=== PATIENT | female | born 1955 | race Caucasian/White ===

== ENCOUNTER 2020-08-26 22:04 | Inpatient (IN) | payer OTHER ==
[~2020-08-26] VITALS: Ht 165.1 cm; Wt 136.1 kg
--- NOTE | 2020-08-26 22:25 | Emergency Room Report ---
History of Present Illness General Chief Complaint: To Be Triaged Source: Patient, Medical Record, EMS Present Illness HPI Is a 65-year-old female with a history of diabetes and morbid obesity with a BMI of 50. She presents with chief complaint of left leg pain and drainage. Onset for last 2 days. She has redness and drainage from her left lower extremity. Pain is 9 out of 10. No fever chills. No nausea no vomiting. Denies any trauma. Similar symptom in the past. She has a history of lymphedema. Patient had multiple Covid test during the pandemic has been negative. She has 2 doses of vaccine already. Allergies: Coded Allergies: No Known Allergies (Unverified , 08/26/20) COVID-19 Screening Contact w/high risk pt: No Experienced COVID-19 symptoms?: No COVID-19 Testing performed CIVIL ENGINEERING DIRECTOR: Yes COVID-19 Screening: Negative COVID-19 COVID-19 Testing Source: unknown Patient History Past Medical History: see triage record, old chart reviewed, DM Past Surgical History: other Pertinent Family History: none Social History: Denies: smoking Now: No Immunizations: other Reviewed Nursing Documentation: PMH: Agreed; PSxH: Agreed Review of Systems Eye: Denies: eye pain, blurred vision ENT: Denies: ear pain, nose congestion, throat swelling Respiratory: Denies: cough, shortness of breath Cardiovascular: Denies: chest pain, palpitations Gastrointestinal: Denies: abdominal pain, diarrhea, nausea, vomiting Musculoskeletal: Reports: muscle pain; Denies: back pain, joint pain Skin: Denies: rash Neurological: Denies: headache, numbness Endocrine: Denies: increased thirst, increased urine Hematologic/Lymphatic: Denies: easy bruising All Other Systems: negative except mentioned in HPI Physical Exam Vital Signs Date Time Temp Pulse Resp B/P (MAP) Pulse Ox O2 Delivery O2 Flow Rate FiO2 08/26/20 21:50 63 22 98/54 (69) 95 Room Air Vitals unremarkable Sp02 EP Interpretation: reviewed, normal General Appearance: well appearing, no apparent distress, alert, obese Head: normocephalic, atraumatic Eyes: bilateral eye PERRL, bilateral eye EOMI ENT: hearing grossly normal, normal pharynx Neck: full range of motion, supple, no meningismus Respiratory: chest non-tender, lungs clear, normal breath sounds Cardiovascular #1: regular rate, rhythm, no murmur Gastrointestinal: normal bowel sounds, non tender, no mass, no organomegaly, no bruit, non-distended Musculoskeletal: back normal, normal range of motion, other - Bilateral lower extremity with lymphedema. Left lower extremity laterally with ulceration and slight drainage. No crepitance. Psychiatric: mood/affect normal Medical Decision Making Diagnostic Impression: Primary Impression: Cellulitis of left leg without foot Additional Impressions: Anemia Qualified Codes: D64.9 - Anemia, unspecified Hyperglycemia due to type 2 diabetes mellitus Qualified Codes: E11.65 - Type 2 diabetes mellitus with hyperglycemia; Z79.4 - long-term (current) use of insulin Morbid obesity with BMI of 45.0-49.9, adult ER Course This is a 65-year-old female with morbid obesity and diabetes who presents with chief complaint of wound drainage to the left leg. Increased risk for bacterial infection and complication because of her obesity and none ambulatory status. Antibiotics given. Wound culture obtained. Will admit for IV antibiotics. I contacted Dr. Sanz for admission. Last Vital Signs Date Time Temp Pulse Resp B/P (MAP) Pulse Ox O2 Delivery O2 Flow Rate FiO2 08/26/20 21:50 63 22 98/54 (69) 95 Room Air Status: improved Disposition: ADMITTED INPATIENT Condition: Serious Ricardo Koch MD Aug 26, 2020 22:24
[2020-08-26] MEDS ORDERED: cefTRIAXone 1 GM in NS 55 ML IVPB ONE (22:30)
[2020-08-26] MEDS ORDERED: HYDROmorphone 1mg/ml Carpuject IVP ONE (22:30)
--- NOTE | 2020-08-26 22:30 | NUR ---
ED Nurse Note: patient brought via ems from [facility] due to swelling, redness, and ulcer formation on left lower leg, blood cultures, wound cultures, and blood specimens sent to lab
[2020-08-26] MEDS ORDERED: ACETAMINOPHEN500 M5 ORAL (22:41)
[2020-08-26] MEDS ORDERED: ELIQUIS5 MG ORAL (22:43)
[2020-08-26] MEDS ORDERED: ASCORBIC ACID500 MG ORAL (22:44)
[2020-08-26] MEDS ORDERED: ATORVASTATIN CA40 MG ORAL (22:44)
[2020-08-26] MEDS ORDERED: LANTUS SOL100 UNIT/1 SUBQ (22:46)
[2020-08-26] MEDS ORDERED: FUROSEMIDE40 MG ORAL (22:47)
[2020-08-26] MEDS ORDERED: CALCIUM CARBON500 M1 PO (22:47)
[2020-08-26 22:48] LABS: BASOPHILS % (AUTO) 0.9 % (0.0-2.0); EOSINOPHILS % (AUTO) 4.7 % (0.0-3.0); HEMATOCRIT 31.3 % (37.0-47.0); HEMOGLOBIN 9.4 G/DL (12.0-16.0); LYMPHOCYTES % (AUTO) 22.2 % (20.0-45.0); MEAN CORPUSCULAR VOLUME 89 FL (80-99); MONOCYTES % (AUTO) 9.9 % (1.0-10.0); NEUTROPHILS % (AUTO) 62.3 % (45.0-75.0); PLATELET COUNT 201 K/UL (150-450); RED CELL DISTRIBUTION WIDTH 17.1 % (11.6-14.8); WHITE BLOOD COUNT 6.6 K/UL (4.8-10.8)
[2020-08-26] MEDS ORDERED: GABAPENTIN800 MG ORAL (22:48)
[2020-08-26] MEDS ORDERED: HYDRALAZINE HCL10 MG ORAL (22:49)
[2020-08-26] MEDS ORDERED: LEXAPRO20 MG ORAL (22:50)
[2020-08-26] MEDS ORDERED: LACTULOSE20 GM/301 ORAL (22:50)
[2020-08-26 22:51] LABS: CALCIUM 9.1 MG/DL (8.5-10.1); CREATININE 1.5 MG/DL (0.55-1.30); POTASSIUM 4.7 MMOL/L (3.5-5.1)
[2020-08-26] MEDS ORDERED: MELATONIN3 MG ORAL (22:51)
[2020-08-26] MEDS ORDERED: LISINOPRIL40 MG ORAL (22:51)
[2020-08-26] MEDS ORDERED: MELOXICAM15 MG PO (22:52)
[2020-08-26] MEDS ORDERED: METOPROLOL TART50 M1 ORAL (22:53)
[2020-08-26] MEDS ORDERED: METFORMIN HCL500 M1 ORAL (22:53)
[2020-08-26] MEDS ORDERED: MULTIVITAMINS1 EAC8 ORAL (22:54)
[2020-08-26 22:55] LABS: ALBUMIN 2.6 G/DL (3.4-5.0); ALBUMIN/GLOBULIN RATIO 0.5 (1.0-2.7); BILIRUBIN,TOTAL 0.3 MG/DL (0.2-1.0)
[2020-08-26] MEDS ORDERED: ADALAT20 MG ORAL (22:55)
[2020-08-26] MEDS ORDERED: HYDROCODON-ACE1 EA17 ORAL (22:56)
[2020-08-26] MEDS ORDERED: SEROQUEL50 MG ORAL (22:57)
[2020-08-26] MEDS ORDERED: INSULIN LI100 UNIT/4 SQ (23:01)
[2020-08-26 23:49] VITALS: BP 98/54
[2020-08-27] VITALS (7 sets, daily range): BP systolic 98–139; BP diastolic 48–81
[2020-08-27] MEDS ORDERED: Morphine Sulfate 4mg/ml Inj (IV USE ONLY) IVP PRN
--- NOTE | 2020-08-27 00:06 | NUR ---
NURSE NOTES: Received telephone report from Manuela GALDAMEZ.
--- NOTE | 2020-08-27 00:16 | NUR ---
MRSA, CRE, VRE swabs sent to lab
--- NOTE | 2020-08-27 00:17 | NUR ---
HAND-OFF: Report given to Ulysses.
--- NOTE | 2020-08-27 00:26 | NUR ---
TRANSFER TO FLOOR: Patient transferred to as ordered, per MD. Report given to MARY. PATIENT HAD NO PERSONAL BELONGINGS
--- NOTE | 2020-08-27 00:30 | NUR ---
NURSE NOTES: Patient transported by [facility]. She is awake, alert and oriented x4. On NC 2L, breathing is even and unlabored. Saturating 99%. VS stable. Skin checked and intact. Red spots on left lower leg noted. Connected to purewick, intact and draining well. Complains of leg pain 03/31. Oriented to hospital room. Bed low and locked. Call light within reach.
--- NOTE | 2020-08-27 01:21 | NUR ---
NURSE NOTES: Called for admission orders. No answer. Left a text message. No new orders at the moment.
[2020-08-27] MEDS ORDERED: HydrALAZINE 10mg Tab ORAL SCH (06:45)
--- NOTE | 2020-08-27 07:29 | NUR ---
NURSE HAND-OFF: Important Events on Shift: Admission Patient Status: Stable Diet: CCHO (medium) Pending Orders: [] Pending Results/Labs:[] Pending MD notification:[] Latest Vital Signs: Temperature 98.1 , Pulse 58 , B/P 117 /73 , Respiratory Rate 20 , O2 SAT 93 , Room Air, O2 Flow Rate 2.0 . Vital Sign Comment: VS stable Latest Roy Fall Score: 45 Fall Risk: High Risk Safety Measures: Call light Within Reach, Bed Alarm , Side Rails Side Rails x2, Bed position Low and Locked. Fall Precautions: Patient Fall Education Report given to Jam GALDAMEZ.
--- NOTE | 2020-08-27 07:30 | NUR ---
NURSE NOTES: Patient lying in bed awake. No complain of pain or distress at this time. Wound dressing on left lower leg dry and intact. IV dressing intact and dry. Bed lowest position and side rails up. Call light within reach. Will continue to monitor.
[2020-08-27] MEDS ORDERED: HYDROcodone/Acetamin 10/325 tab ORAL PRN (08:00)
[2020-08-27] MEDS ORDERED: Heparin 5000 units/ml inj SUBQ SCH (09:00)
[2020-08-27] MEDS ORDERED: Lisinopril 20mg tab ORAL SCH (09:00)
[2020-08-27] MEDS: Meloxicam 15 MG TAB ORAL SCH (09:37)
[2020-08-27] MEDS: Ascorbic Acid 500mg tab ORAL SCH (09:37)
[2020-08-27] MEDS: metFORMIN 500mg tab ORAL SCH (09:38)
[2020-08-27] MEDS: Metoprolol Tartrate 50mg tab ORAL SCH ×2 (09:38→21:04)
[2020-08-27] MEDS: Eliquis 2.5mg tablet ORAL SCH ×2 (09:38→17:29)
[2020-08-27] MEDS: Furosemide 40mg tab ORAL SCH (09:38)
[2020-08-27] MEDS: Multivitamin w/Minerals tab ORAL SCH (09:38)
[2020-08-27] MEDS: Lactulose 20gm/30ml UDC ORAL SCH ×3 (09:39→17:33)
[2020-08-27] MEDS: Levemir Flexpen SUBQ SCH ×2 (09:40→17:31)
--- NOTE | 2020-08-27 12:33 | NUR ---
NURSE NOTES: Spoke to regarding [place] and Hydralazine and new order received. Order read back and carried out.
[2020-08-27] MEDS ORDERED: HydrALAZINE 10mg Tab ORAL PRN (12:36)
[2020-08-27] MEDS: HYDROcodone/Acetamin 10/325 tab ORAL PRN ×2 (12:43→18:46)
[2020-08-27] MEDS: NovoLOG Insulin Flexpen SUBQ SCH ×3 (12:45→21:24)
--- NOTE | 2020-08-27 17:09 | NUR ---
CASE MANAGEMENT: INITIAL REVIEW 65 YO F LIGIA FROM [facility] CC: LEFT LEG REDNESS PMHx: DM AND MORBID OBESITY SI:CELLULITIS LEFT LOWER EXTREMITY VS: T 98.7 HR 58 RR 16 B/P 98/54 SATS 95% ON 2L/NC LABS: BUN 60 CR 1.5 GLU 332 ALP 119 IS: DILAUDID IV X1 CEFTRIAXONE IV X1 NS BOLUS X1 PATIENT ADMITTED TO MED/SURG 08/26/2020 @ 2310 DCP: SNF CONCURRENT REVIEW FOR 08/27/2020 SI:CELLULITIS LEFT LOWER EXTREMITY VS: T 98.1 HR 58 RR 20 B/P 117/73 SATS 93% ON 2L/NC LABS: NONE TODAY IS:LIPITOR PO QHS ELIQUIS PO BID LEVEMIR SUBQ BID LOPRESSOR PO BID LASIX PO QD MOBIC PO QD GLUCOPHAGE PO QD CEFTRIAXONE IV Q24H LACTULOSE IV Q24H MED/SURG DCP: SNF
--- NOTE | 2020-08-27 19:36 | NUR ---
NURSE HAND-OFF: Important Events on Shift:N/A Patient Status: Stable Diet: CCHO(M) Pending Orders: N/A Pending Results/Labs:N/A Pending MD notification:N/A Latest Vital Signs: Temperature 98.3 , Pulse 63 , B/P 134 /49 , Respiratory Rate 19 , O2 SAT 92 , Room Air, O2 Flow Rate 2.0 . Vital Sign Comment: Stable Latest Roy Fall Score: 35 Fall Risk: Medium Risk Safety Measures: Call light Within Reach, Bed Alarm Zone 1, Side Rails Side Rails x1, Bed position Low and Locked. Fall Precautions: Yellow Socks Door Sign Patient Fall Education Report given to Diaz GALDAMEZ. Patient in stable condition.
--- NOTE | 2020-08-27 19:40 | NUR ---
NURSE NOTES: Pt received from RUDOLPH Polk. Pt is resting comfortably in bed c/o pain in LLE extremity with cellulitis relieved by pain medication. Pt is A/Ox4 bedbound due to weakness. Pt is breathing unlabored on 2LPM NC and asymptomatic. Pt has ANTOINETTE 24G SL patent with dressing dry and intact. Bed is locked and in lowest position with call light within reach. Will continue to monitor.
--- NOTE | 2020-08-27 21:00 | NUR ---
NURSE NOTES: Pt c/o severe pain in left lower extremity unrelieved by current pain medication. Dr Sanz ordered new pain medication and added Dr Harry for pain consult. Administered new medication. Pt reports relief of pain. Will continue to monitor.
[2020-08-27] MEDS: Atorvastatin 20mg tab ORAL SCH (21:04)
--- NOTE | 2020-08-27 21:29 | History and Physical Report ---
DATE OF ADMISSION: 08/26/2020 HISTORY OF PRESENT ILLNESS: This is a 65-year-old white female who came to the emergency room for cellulitis of the left leg, swelling, and chronic pain. The patient is in bed complaining of pain. PAST MEDICAL HISTORY: Significant for hypertension, diabetes, CHF, comorbid obesity. ALLERGIES: NKA. FAMILY HISTORY: Noncontributory. SOCIAL HISTORY: Lives at alf, mostly bedbound. REVIEW OF SYSTEMS: Generalized weakness, pain on the leg and swelling. PHYSICAL EXAMINATION: VITAL SIGNS: Blood pressure is 124/70, pulse 84, respirations 18, no fever. HEENT: Mild JVD. CHEST: Bilateral decreased breath sounds. CARDIOVASCULAR: Regular rhythm. No gallop. No murmur. ABDOMEN: Soft. Positive bowel sounds. EXTREMITIES: Show 1+ edema on both legs and the left leg has erythema and tenderness. GENITOURINARY: Deferred. LABORATORY DATA: Troponins are negative. ASSESSMENT AND PLAN: 1. Cellulitis of left leg. 2. Edema. 3. CHF. 4. Hypertension. 5. Diabetes. 6. Chronic pain. We will admit the patient on medical floor, start IV antibiotics, continue Lasix, continue pain medication, and consider Cardiology consult. Hal Sanz M.D. DR: Carisa JOB#: [id number] CC:
[2020-08-27] MEDS: Morphine Sulfate 2mg/ml Inj(IV/IM USE ONLY) IVP PRN (22:26)
[2020-08-27] MEDS: cefTRIAXone 1 GM in D5W 55 ML IVPB SCH (22:26)
[2020-08-28] VITALS (7 sets, daily range): BP systolic 93–122; BP diastolic 42–63
[2020-08-28] MEDS: HYDROcodone/Acetamin 10/325 tab ORAL PRN ×4 (01:17→20:55)
[2020-08-28] MEDS: Morphine Sulfate 2mg/ml Inj(IV/IM USE ONLY) IVP PRN ×2 (03:10→17:18)
[2020-08-28] MEDS: NovoLOG Insulin Flexpen SUBQ SCH ×4 (05:44→21:10)
--- NOTE | 2020-08-28 06:48 | NUR ---
NURSE HAND-OFF: Important Events on Shift:Pt received scheduled medications. Pt received new order for pain medication for severe pain and added consult Dr Harry to the case Patient Status: Stable Diet: CCHO Med Pending Orders: Pending Results/Labs:AM Labs Pending MD notification: Latest Vital Signs: Temperature 98.9 , Pulse 65 , B/P 105 /50 , Respiratory Rate 18 , O2 SAT 97 , Room Air, O2 Flow Rate 2.0 . Vital Sign Comment: VSS Latest Roy Fall Score: 35 Fall Risk: Medium Risk Safety Measures: Call light Within Reach, Bed Alarm Zone 1, Side Rails Side Rails x1, Bed position Low and Locked. Fall Precautions: Yellow Socks Door Sign Patient Fall Education Report to be given.
--- NOTE | 2020-08-28 08:00 | NUR ---
NURSE NOTES: Patient awake and alert and oriented ,respirations unlabored.Left upper arm saline lock in place.Patient has pure wick in place with clear donato color urine noted.Patient ate breakfast.Bed alarm on,call light within reach.
[2020-08-28] MEDS: Eliquis 2.5mg tablet ORAL SCH ×2 (08:54→18:17)
[2020-08-28] MEDS: Multivitamin w/Minerals tab ORAL SCH (08:54)
[2020-08-28] MEDS: Meloxicam 15 MG TAB ORAL SCH (08:54)
[2020-08-28] MEDS: Lactulose 20gm/30ml UDC ORAL SCH ×4 (08:55→18:00)
[2020-08-28] MEDS: metFORMIN 500mg tab ORAL SCH (08:55)
[2020-08-28] MEDS: Ascorbic Acid 500mg tab ORAL SCH (08:55)
[2020-08-28] MEDS: Lisinopril 20mg tab ORAL SCH (09:00)
[2020-08-28] MEDS: Metoprolol Tartrate 50mg tab ORAL SCH ×2 (09:00→20:54)
[2020-08-28] MEDS: Levemir Flexpen SUBQ SCH ×2 (09:01→18:22)
[2020-08-28] MEDS: Furosemide 40mg tab ORAL SCH (12:40)
--- NOTE | 2020-08-28 13:27 | Consultation ---
History of Present Illness General Reason for Hospitalization: General Complaint Present Illness HPI this is a 65-year-old female with a history of diabetes and morbid obesity with a BMI of 50 who presents with chief complaint of left leg pain and drainage. Onset for last 2 days. She has redness and drainage from her left lower extremity. Pain is 9 out of 10. No fever chills. No nausea no vomiting. Denies any trauma. Similar symptom in the past. She has a history of lymphedema. Patient had multiple Covid test during the pandemic has been negative. She has 2 doses of vaccine already. Surgery called to evaluate assist with care. Patient seen, patient by, chart reviewed. Patient states she has had significant venous stasis and her lower extremity some time now. Receives care as an outpatient. Facility. No nausea vomiting fever chills. Noted the wound on the posterior aspect of drainage surgery called. Allergies: Coded Allergies: No Known Allergies (Unverified , 08/26/20) COVID-19 Screening Contact w/high risk pt: No Experienced COVID-19 symptoms?: No Medication History Scheduled Acetaminophen (Acetaminophen), 325 MG ORAL Q6HR, (Reported) Apixaban (Eliquis*), 5 MG ORAL BID, (Reported) Ascorbic Acid* (Ascorbic Acid*), 500 MG ORAL DAILY, (Reported) Atorvastatin Calcium* (Atorvastatin Calcium*), 40 MG ORAL BEDTIME, (Reported) Escitalopram Oxalate* (Lexapro*), 20 MG ORAL DAILY, (Reported) Furosemide* (Lasix*), 40 MG ORAL DAILY, (Reported) Gabapentin* (Gabapentin*), 800 MG ORAL THREE TIMES A DAY, (Reported) Hydralazine Hcl* (Hydralazine Hcl*), 10 MG ORAL PRN, (Reported) Insulin Glargine (Lantus), 10 SUBQ TWICE A DAY, (Reported) Insulin Lispro (Insulin Lispro Lowell Kwikpen), 100 UNIT SQ sliding scale, (Reported) Lactulose (Lactulose*), 45 ML ORAL TID, (Reported) Lisinopril* (Lisinopril*), 40 MG ORAL TID, (Reported) Meloxicam* (Meloxicam*), 15 MG PO DAILY, (Reported) Metformin Hcl* (Metformin Hcl*), 500 MG ORAL DAILY, (Reported) Metoprolol Tartrate* (Metoprolol Tartrate*), 50 MG ORAL TWICE A DAY, (Reported) Multivitamin With Minerals (Multivitamins With Minerals*), 1 TAB ORAL DAILY, (Reported) Nifedipine (Nifedipine*), 30 MG ORAL DAILY, (Reported) Quetiapine Fumarate (Seroquel), 50 MG ORAL DAILY, (Reported) Scheduled PRN Calcium Carbonate (Calcium Carbonate), 500 MG PO Q8HR PRN for Prn Chest Pain, (Reported) Hydrocodone Bit/Acetaminophen (Hydrocodon-Acetaminophn 10-300), 1 TAB ORAL for For Pain, (Reported) Melatonin (Melatonin), 3 MG ORAL BEDTIME PRN for Insomnia, (Reported) Patient History History Provided By: Patient, Medical Record, PMD Healthcare decision maker Resuscitation status Advanced Directive on File Past Medical/Surgical History Past Medical/Surgical History: (1) Anemia (2) Morbid obesity with BMI of 45.0-49.9, adult (3) Hyperglycemia due to type 2 diabetes mellitus (4) Cellulitis of left leg without foot Review of Systems Review of Symptoms General ROS: no weight loss or fever Psychological ROS: no depression or mood changes, no memory loss Ophthalmic ROS: no visual changes or eye irritation ENT ROS: no nasal congestion, hearing loss, dizziness Allergy and Immunology ROS: no allergic symptoms or urticaria Hematological and Lymphatic ROS: no swollen glands, unusual bleeding or bruising Endocrine ROS: no polyuria, polydipsia, weight changes, temperature intolerance Respiratory ROS: no cough, shortness of breath, or wheezing Cardiovascular ROS: no chest pain or dyspnea on exertion Gastrointestinal ROS: denies abdominal pain, bright red blood in stool. Musculoskeletal ROS: no myalgias or arthralgias Neurological ROS: no TIA or stroke symptoms Dermatological ROS: no new or changing skin lesions, rashes or pruritis Physical Exam Physical Exam General appearance: alert, cooperative, no distress, appears stated age Head: Normocephalic, without obvious abnormality, atraumatic Eyes: conjunctivae/corneas clear. PERRL, EOM's intact. Fundi benign Throat: Lips, mucosa, and tongue normal. Teeth and gums normal Neck: supple, symmetrical, trachea midline, no adenopathy, thyroid: not enlarged, symmetric, no tenderness/mass/nodules, no carotid bruit and no JVD Lungs: clear to auscultation bilaterally Heart: regular rate and rhythm, S1, S2 normal, no murmur, click, rub or gallop Abdomen: soft, non-tender. Bowel sounds normal. No masses, no organomegaly Extremities: extremities edema Pulses: 2+ and symmetric Skin: Skin color, texture, turgor normal. No rashes or lesions Neurologic: Grossly normal Last 24 Hour Vital Signs Date Time Temp Pulse Resp B/P (MAP) Pulse Ox O2 Delivery O2 Flow Rate FiO2 08/28/20 09:17 60 93/42 (59) 08/28/20 09:00 Room Air 08/28/20 09:00 93/42 08/28/20 09:00 60 93/42 08/28/20 09:00 60 93/42 08/28/20 08:00 97.9 58 19 122/58 (79) 92 08/28/20 04:00 98.9 65 18 105/50 (68) 97 08/28/20 00:00 97.9 65 18 120/63 (82) 96 08/27/20 21:04 63 134/54 08/27/20 21:00 Room Air 08/27/20 20:00 97.9 69 18 98/48 (65) 98 08/27/20 16:00 98.3 63 19 134/49 (77) 92 Intake and Output 08/27/20 08/28/20 19:00 07:00 Intake Total 120 ml 55 ml Output Total 700 ml 500 ml Balance -580 ml -445 ml Intake Oral 120 ml IV Total 55 ml Output Urine Total 700 ml 500 ml # Voids 2 1 # Bowel Movements 1 Laboratory Tests Test 08/27/20 16:57 08/27/20 21:16 08/28/20 09:00 08/28/20 12:18 POC Whole Blood Glucose Pending Pending Pending Pending Height (Feet): 5 Height (Inches): 5.00 Weight (Pounds): 300 Medications Current Medications Medications (Trade) Dose Ordered Sig/Maya Route PRN Reason Start Time Stop Time Status Last Admin Dose Admin Acetaminophen (Tylenol) 325 mg Q6H PRN ORAL Mild Pain (Pain Scale 1-3) 08/27/20 08:00 09/26/20 07:59 Acetaminophen/ Hydrocodone Bitart (Paige 10/325) 1 tab Q6H PRN ORAL pain 4-10 08/27/20 12:36 09/03/20 12:35 08/28/20 12:52 Apixaban (Eliquis) 5 mg BID ORAL 08/27/20 09:00 11/25/20 08:59 08/28/20 08:54 Ascorbic Acid (Vitamin C) 500 mg DAILY ORAL 08/27/20 09:00 09/26/20 08:59 08/28/20 08:55 Atorvastatin Calcium (Lipitor) 40 mg BEDTIME ORAL 08/27/20 21:00 11/25/20 20:59 08/27/20 21:04 Ceftriaxone Sodium 1 gm/ Dextrose 55 ml @ 110 mls/hr Q24H IVPB 08/27/20 23:00 09/03/20 22:59 08/27/20 22:26 Dextrose (Dextrose 50%) 25 ml Q30M PRN IV Hypoglycemia 08/27/20 07:00 11/25/20 06:59 Dextrose (Dextrose 50%) 50 ml Q30M PRN IV Hypoglycemia 08/27/20 07:00 11/25/20 06:59 Escitalopram Oxalate (Lexapro) 20 mg DAILY ORAL 08/27/20 09:00 09/26/20 08:59 08/28/20 08:55 Furosemide (Lasix) 40 mg DAILY ORAL 08/27/20 09:00 09/26/20 08:59 08/28/20 12:40 Gabapentin (Neurontin) 800 mg THREE TIMES A DAY ORAL 08/27/20 09:00 09/26/20 08:59 08/28/20 08:52 Hydralazine HCl (Apresoline) 10 mg Q6H PRN ORAL SBP > 160; DBP > 90 08/27/20 12:36 11/25/20 12:35 Insulin Aspart (NovoLOG) BEFORE MEALS AND HS SUBQ 08/27/20 11:30 11/25/20 11:29 08/28/20 12:36 Insulin Detemir (Levemir) 10 units BID SUBQ 08/27/20 09:00 11/25/20 08:59 08/28/20 09:01 Lactulose (Cephulac) 30 gm TID ORAL 08/27/20 09:00 09/26/20 08:59 08/27/20 12:43 Lisinopril (PriniviL) 40 mg DAILY ORAL 08/28/20 09:00 09/26/20 08:59 Meloxicam (Mobic) 15 mg DAILY ORAL 08/27/20 09:00 09/26/20 08:59 08/28/20 08:54 Metformin HCl (Glucophage) 500 mg DAILY ORAL 08/27/20 09:00 09/26/20 08:59 08/28/20 08:55 Metoprolol Tartrate (Lopressor) 50 mg BID@0900,2100 ORAL 08/27/20 09:00 11/25/20 08:59 08/27/20 21:04 Morphine Sulfate (Morphine Sulfate) 1 mg Q4H PRN IVP pain 08/27/20 21:30 09/03/20 21:29 08/28/20 03:10 Multivitamins Therapeutic (Therapeutic Multivitamin) 1 ea DAILY ORAL 08/27/20 09:00 09/26/20 08:59 08/28/20 08:54 Nifedipine (Procardia XL) 30 mg DAILY ORAL 08/27/20 09:00 09/26/20 08:59 08/27/20 09:37 Assessment/Plan Problem List: (1) Anemia ICD Codes: D64.9 - Anemia, unspecified SNOMED: 972731085, 926484352, [id number] Qualifiers: Qualified Codes: D64.9 - Anemia, unspecified (2) Cellulitis of left leg without foot Assessment & Plan: Patient identified to have significant morbid obesity and bilateral lower extremity venous stasis disease with near elephantitis. She has developed cellulitis on the left leg and states she is had similar episodes in the past. No open wounds prior. Now has an area of eschar with mild oozing because of the cellulitis and edema on the left posterior aspect of the leg. Thera honey applied followed by ABD and wrap. Okay for Optifoam dressing. Keep bilateral lower extremities elevated while in bed. Nutritional optimization. Antibiotics. Will follow with recommendations. Thank you for let me participate in patient's care. No abscess identified no acute surgical intervention local wound care ICD Codes: L03.116 - Cellulitis of left lower limb SNOMED: 539056672, 90706444, [id number] (3) Morbid obesity with BMI of 45.0-49.9, adult ICD Codes: E66.01 - Morbid (severe) obesity due to excess calories; Z68.42 - Body mass index [BMI] 45.0-49.9, adult SNOMED: 526473131, 943674737, 03450305629520 (4) Hyperglycemia due to type 2 diabetes mellitus ICD Codes: E11.65 - Type 2 diabetes mellitus with hyperglycemia SNOMED: 650155025561026, 55513754, 25652036698808 Qualifiers: Qualified Codes: E11.65 - Type 2 diabetes mellitus with hyperglycemia; Z79.4 - intermediate card tender (current) use of insulin Corona Santiago Aug 28, 2020 13:27
--- NOTE | 2020-08-28 14:34 | General Progress Note ---
Subjective Date patient seen: Aug 28, 2020 Constitutional: Reports: malaise, weakness HEENT: Reports: no symptoms Cardiovascular: Reports: chest pain Respiratory: Reports: cough Gastrointestinal/Abdominal: Reports: no symptoms Genitourinary: Reports: no symptoms Neurologic/Psychiatric: Reports: no symptoms Allergies: Coded Allergies: No Known Allergies (Unverified , 08/26/20) Objective Last 24 Hour Vital Signs Date Time Temp Pulse Resp B/P (MAP) Pulse Ox O2 Delivery O2 Flow Rate FiO2 08/28/20 09:17 60 93/42 (59) 08/28/20 09:00 Room Air 08/28/20 09:00 93/42 08/28/20 09:00 60 93/42 08/28/20 09:00 60 93/42 08/28/20 08:00 97.9 58 19 122/58 (79) 92 08/28/20 04:00 98.9 65 18 105/50 (68) 97 08/28/20 00:00 97.9 65 18 120/63 (82) 96 08/27/20 21:04 63 134/54 08/27/20 21:00 Room Air 08/27/20 20:00 97.9 69 18 98/48 (65) 98 08/27/20 16:00 98.3 63 19 134/49 (77) 92 Intake and Output 08/27/20 08/28/20 19:00 07:00 Intake Total 120 ml 55 ml Output Total 700 ml 500 ml Balance -580 ml -445 ml Intake Oral 120 ml IV Total 55 ml Output Urine Total 700 ml 500 ml # Voids 2 1 # Bowel Movements 1 Laboratory Tests 08/27/20 16:57: POC Whole Blood Glucose [Pending] 08/27/20 21:16: POC Whole Blood Glucose [Pending] 08/28/20 09:00: POC Whole Blood Glucose [Pending] 08/28/20 12:18: POC Whole Blood Glucose [Pending] Height (Feet): 5 Height (Inches): 5.00 Weight (Pounds): 300 General Appearance: alert EENT: PERRL/EOMI Neck: supple Cardiovascular: regular rhythm Respiratory/Chest: crackles/rales Abdomen: non tender, soft Extremities: calf tenderness, swelling Assessment/Plan Assessment/Plan: cellulitis of leg chf htn ch pain synd comorbid obeasity cont iv abx lasix cardiac diet fluid restriction cont pain Jaren Cobb MD Aug 28, 2020 14:34
--- NOTE | 2020-08-28 17:20 | NUR ---
NURSE NOTES: Skin care given dressing changes,medicated for complaint of pain.Bed alarm on,call light within reach.
--- NOTE | 2020-08-28 19:40 | NUR ---
NURSE NOTES: Receive a report from RUDOLPH Alcaraz. Roud is made. Easily aroused by name. No acute distress noted. Left leg elevated with pillow. Dressing kept intact. On bed bound. IV is left DIONNE H/L. Call light within reach. Will continue to monitor.
--- NOTE | 2020-08-28 20:26 | NUR ---
NURSE HAND-OFF: O RN Important Events on Shift:[DR Santiago clarification on dressing change. Patient Status: [stable. Diet: CCHO medium diet[] Pending Orders: []lab on 08/29/20 Pending Results/Labs:[] Pending MD notification:[] Latest Vital Signs: Temperature 98.3 , Pulse 58 , B/P 110 /62 , Respiratory Rate 18 , O2 SAT 95 , Room Air, O2 Flow Rate 2.0 . Vital Sign Comment: [] Latest Roy Fall Score: 35 Fall Risk: Medium Risk Safety Measures: Call light Within Reach, Bed Alarm Zone 1, Side Rails Side Rails x1, Bed position Low and Locked. Fall Precautions: Yellow Socks Door Sign Patient Fall Education Report given to [].
[2020-08-28] MEDS: Atorvastatin 20mg tab ORAL SCH (20:54)
[2020-08-28] MEDS: cefTRIAXone 1 GM in D5W 55 ML IVPB SCH (22:31)
[2020-08-29] VITALS: BP 123/59
[2020-08-29] MEDS: HYDROcodone/Acetamin 10/325 tab ORAL PRN ×4 (03:21→22:34)
[2020-08-29 04:00] VITALS: BP 115/60
[2020-08-29] MEDS: NovoLOG Insulin Flexpen SUBQ SCH ×4 (06:12→21:22)
[2020-08-29] MEDS: Morphine Sulfate 2mg/ml Inj(IV/IM USE ONLY) IVP PRN ×2 (06:15→11:56)
--- NOTE | 2020-08-29 06:41 | NUR ---
NURSE HAND-OFF: Important Events on Shift: Given pain medication-Norcox2, Morphine x1. Kept elevated L/E for cellulitis. Patient Status: [stable] Diet: [CCHO M] Pending Orders: [] Pending Results/Labs:[] Pending MD notification:[] Latest Vital Signs: Temperature 98.1 , Pulse 57 , B/P 115 /60 , Respiratory Rate 18 , O2 SAT 97 , Room Air, O2 Flow Rate 2.0 . Vital Sign Comment: [] Latest Roy Fall Score: 45 Fall Risk: High Risk Safety Measures: Call light Within Reach, Bed Alarm Zone 1, Side Rails Side Rails x2, Bed position Low and Locked. Fall Precautions: Yellow Socks Door Sign Patient Fall Education
--- NOTE | 2020-08-29 07:26 | NUR ---
NURSE NOTES: Given report from RUDOLPH Casper.
[2020-08-29 08:00] VITALS: BP 110/55
[2020-08-29] MEDS: Lactulose 20gm/30ml UDC ORAL SCH ×3 (08:24→17:27)
[2020-08-29] MEDS: Ascorbic Acid 500mg tab ORAL SCH (08:25)
[2020-08-29] MEDS: Furosemide 40mg tab ORAL SCH (08:28)
[2020-08-29] MEDS: Metoprolol Tartrate 50mg tab ORAL SCH ×2 (08:28→21:00)
[2020-08-29] MEDS: Eliquis 2.5mg tablet ORAL SCH ×2 (08:29→17:27)
[2020-08-29] MEDS: Meloxicam 15 MG TAB ORAL SCH (08:29)
[2020-08-29] MEDS: Multivitamin w/Minerals tab ORAL SCH (08:30)
[2020-08-29] MEDS: metFORMIN 500mg tab ORAL SCH (08:30)
[2020-08-29] MEDS: Lisinopril 20mg tab ORAL SCH (08:31)
[2020-08-29] MEDS: Levemir Flexpen SUBQ SCH ×2 (08:46→17:34)
[2020-08-29 12:00] VITALS: BP 121/58
--- NOTE | 2020-08-29 14:41 | NUR ---
CASE MANAGEMENT:REVIEW 08/29/20 SI: LLE CELLULITIS. ANEMIA 97.7 59 18 121/58 92% ON RA GLUCOSE+179 IS: IV ROCEPHIN Q24 LISINOPRIL PO QD IV MORPHINE Q4HRS PRN SS INSULIN AC+HS LEVEMIR SQ BID PROCARDIA XL PO QD ELIQUIS PO BID LOPRESSOR PO BID LACTULOSE PO TID LASIX PO QD : MED/SURG STATUS DCP: FROM [facility]
[2020-08-29] MEDS ORDERED: NIFEDIPINE ER30 M2 ORAL (15:55)
[2020-08-29] MEDS ORDERED: HYDROCODON-ACE1 EA13 ORAL (15:55)
[2020-08-29] MEDS ORDERED: ACETAMINOPHEN325 M1 ORAL (15:55)
[2020-08-29 16:00] VITALS: BP 122/64
[2020-08-29 16:05] LABS: BASOPHILS % (AUTO) 1.1 % (0.0-2.0); EOSINOPHILS % (AUTO) 4.4 % (0.0-3.0); HEMATOCRIT 31.5 % (37.0-47.0); HEMOGLOBIN 9.5 G/DL (12.0-16.0); LYMPHOCYTES % (AUTO) 16.4 % (20.0-45.0); MEAN CORPUSCULAR VOLUME 90 FL (80-99); NEUTROPHILS % (AUTO) 70.1 % (45.0-75.0); PLATELET COUNT 196 K/UL (150-450); RED BLOOD COUNT 3.49 M/UL (4.20-5.40); RED CELL DISTRIBUTION WIDTH 16.8 % (11.6-14.8); WHITE BLOOD COUNT 7.3 K/UL (4.8-10.8)
--- NOTE | 2020-08-29 16:10 | General Progress Note ---
Subjective Date patient seen: Aug 29, 2020 Constitutional: Reports: weakness HEENT: Reports: no symptoms Cardiovascular: Reports: no symptoms Respiratory: Reports: shortness of breath Gastrointestinal/Abdominal: Reports: no symptoms Genitourinary: Reports: no symptoms Neurologic/Psychiatric: Reports: no symptoms, other Allergies: Coded Allergies: No Known Allergies (Unverified , 08/26/20) Subjective bed bound doing ok Objective Last 24 Hour Vital Signs Date Time Temp Pulse Resp B/P (MAP) Pulse Ox O2 Delivery O2 Flow Rate FiO2 08/29/20 12:26 98.1 08/29/20 12:00 97.7 59 18 121/58 (79) 92 08/29/20 10:23 98.1 08/29/20 09:00 Room Air 08/29/20 08:31 110/55 08/29/20 08:28 60 110/55 08/29/20 08:26 60 110/55 08/29/20 08:00 98.8 60 18 110/55 (73) 98 08/29/20 04:00 98.1 57 18 115/60 (78) 97 08/29/20 00:00 98.3 70 18 123/59 (80) 93 08/28/20 21:00 Room Air 08/28/20 20:54 75 121/58 08/28/20 20:00 98.1 75 18 121/58 (79) 93 Intake and Output 08/28/20 08/29/20 19:00 07:00 Intake Total 1080 ml 390 ml Output Total 600 ml 1100 ml Balance 480 ml -710 ml Intake Oral 1080 ml 390 ml Output Urine Total 600 ml 1100 ml Laboratory Tests 08/28/20 17:00: POC Whole Blood Glucose 220H 08/28/20 20:57: POC Whole Blood Glucose 257H 08/29/20 06:06: POC Whole Blood Glucose 179H 08/29/20 11:53: POC Whole Blood Glucose [Pending] 08/29/20 15:50: White Blood Count 7.3, Red Blood Count 3.49L, Hemoglobin 9.5L, Hematocrit 31.5L, Mean Corpuscular Volume 90, Mean Corpuscular Hemoglobin 27.2, Mean Corpuscular Hemoglobin Concent 30.1L, Red Cell Distribution Width 16.8H, Platelet Count 196, Mean Platelet Volume 6.2L, Neutrophils (%) (Auto) 70.1, Lymphocytes (%) (Auto) 16.4L, Monocytes (%) (Auto) 8.0, Eosinophils (%) (Auto) 4.4H, Basophils (%) (Auto) 1.1, Sodium Level [Pending], Potassium Level [Pending], Chloride Level [Pending], Carbon Dioxide Level [Pending], Blood Urea Nitrogen [Pending], Creatinine [Pending], Estimat Glomerular Filtration Rate [Pending], Glucose Level [Pending], Calcium Level [Pending], Total Bilirubin [Pending], Aspartate Amino Transf (AST/SGOT) [Pending], Alanine Aminotransferase (ALT/SGPT) [Pending], Alkaline Phosphatase [Pending], Total Protein [Pending], Albumin [Pending], Globulin [Pending] Height (Feet): 5 Height (Inches): 5.00 Weight (Pounds): 300 General Appearance: alert EENT: PERRL/EOMI Neck: supple Cardiovascular: regular rhythm Respiratory/Chest: lungs clear Abdomen: non tender, soft Extremities: swelling Assessment/Plan Assessment/Plan: cellulitis of leg chf htn ch pain synd comorbid obeasity cont iv abx lasix cardiac diet fluid restriction cont pain Jaren Cobb MD Aug 29, 2020 16:10
[2020-08-29 16:25] LABS: ALBUMIN 2.7 G/DL (3.4-5.0); ALBUMIN/GLOBULIN RATIO 0.6 (1.0-2.7); BILIRUBIN,TOTAL 0.3 MG/DL (0.2-1.0); CALCIUM 9.2 MG/DL (8.5-10.1); CREATININE 1.3 MG/DL (0.55-1.30)
--- NOTE | 2020-08-29 18:15 | Surgery Progress Note ---
Surgery Progress Note Subjective Symptoms: tolerating diet Additional Comments dressings changed leg elevated feels better n on/v Objective Last 24 Hour Vital Signs Date Time Temp Pulse Resp B/P (MAP) Pulse Ox O2 Delivery O2 Flow Rate FiO2 08/29/20 17:01 98.1 08/29/20 16:00 98.1 60 18 122/64 (83) 96 08/29/20 12:26 98.1 08/29/20 12:00 97.7 59 18 121/58 (79) 92 08/29/20 10:23 98.1 08/29/20 09:00 Room Air 08/29/20 08:31 110/55 08/29/20 08:28 60 110/55 08/29/20 08:26 60 110/55 08/29/20 08:00 98.8 60 18 110/55 (73) 98 08/29/20 04:00 98.1 57 18 115/60 (78) 97 08/29/20 00:00 98.3 70 18 123/59 (80) 93 08/28/20 21:00 Room Air 08/28/20 20:54 75 121/58 08/28/20 20:00 98.1 75 18 121/58 (79) 93 I&O Intake and Output 08/28/20 08/29/20 19:00 07:00 Intake Total 1080 ml 390 ml Output Total 600 ml 1100 ml Balance 480 ml -710 ml Intake Oral 1080 ml 390 ml Output Urine Total 600 ml 1100 ml Dressing: saturated Cardiovascular: RSR Respiratory: clear, decreased breath sounds Abdomen: soft, non-tender, present bowel sounds, non-distended Extremities: edema, tenderness, no cyanosis, other Laboratory Tests Test 08/28/20 20:57 08/29/20 06:06 08/29/20 11:53 08/29/20 15:50 POC Whole Blood Glucose 257 MG/DL (74-106) H 179 MG/DL (74-106) H Pending White Blood Count 7.3 K/UL (4.8-10.8) Red Blood Count 3.49 M/UL (4.20-5.40) L Hemoglobin 9.5 G/DL (12.0-16.0) L Hematocrit 31.5 % (37.0-47.0) L Mean Corpuscular Volume 90 FL (80-99) Mean Corpuscular Hemoglobin 27.2 PG (27.0-31.0) Mean Corpuscular Hemoglobin Concent 30.1 G/DL (32.0-36.0) L Red Cell Distribution Width 16.8 % (11.6-14.8) H Platelet Count 196 K/UL (150-450) Mean Platelet Volume 6.2 FL (6.5-10.1) L Neutrophils (%) (Auto) 70.1 % (45.0-75.0) Lymphocytes (%) (Auto) 16.4 % (20.0-45.0) L Monocytes (%) (Auto) 8.0 % (1.0-10.0) Eosinophils (%) (Auto) 4.4 % (0.0-3.0) H Basophils (%) (Auto) 1.1 % (0.0-2.0) Sodium Level 140 MMOL/L (136-145) Potassium Level 5.0 MMOL/L (3.5-5.1) Chloride Level 106 MMOL/L (98-107) Carbon Dioxide Level 27 MMOL/L (21-32) Anion Gap 7 mmol/L (5-15) Blood Urea Nitrogen 48 mg/dL (7-18) H Creatinine 1.3 MG/DL (0.55-1.30) Estimat Glomerular Filtration Rate 41.3 mL/min (>60) Glucose Level 215 MG/DL (74-106) H Calcium Level 9.2 MG/DL (8.5-10.1) Total Bilirubin 0.3 MG/DL (0.2-1.0) Aspartate Amino Transf (AST/SGOT) 20 U/L (15-37) Alanine Aminotransferase (ALT/SGPT) 20 U/L (12-78) Alkaline Phosphatase 89 U/L (46-116) Total Protein 7.6 G/DL (6.4-8.2) Albumin 2.7 G/DL (3.4-5.0) L Globulin 4.9 g/dL Albumin/Globulin Ratio 0.6 (1.0-2.7) L Test 08/29/20 16:21 POC Whole Blood Glucose Pending Plan Problems: (1) Anemia (2) Cellulitis of left leg without foot Assessment & Plan: Patient identified to have significant morbid obesity and bilateral lower extremity venous stasis disease with near elephantitis. She has developed cellulitis on the left leg and states she is had similar episodes in the past. No open wounds prior. Now has an area of eschar with mild oozing because of the cellulitis and edema on the left posterior aspect of the leg. Thera honey applied followed by ABD and wrap. Okay for Optifoam dressing. Keep bilateral lower extremities elevated while in bed. Nutritional optimization. Antibiotics. Will follow with recommendations. Thank you for let me participate in patient's care. No abscess identified no acute surgical intervention local wound care (3) Morbid obesity with BMI of 45.0-49.9, adult (4) Hyperglycemia due to type 2 diabetes mellitus Corona Santiago Aug 29, 2020 18:15
--- NOTE | 2020-08-29 19:45 | NUR ---
NURSE NOTES: Received report from James GALDAMEZ. Patient is awake, alert and oriented x4. On room air, breathing is even and unlabored. Complains of pain on legs 8/10. Will administer pain meds as ordered. Dressing is clean and intact. IV left UA intact and patent with no bleeding noted. Bed low and locked. Call light within reach.
--- NOTE | 2020-08-29 19:54 | NUR ---
NURSE HAND-OFF: Important Events on Shift:[] Patient Status: [] Diet: [ccho medium] Pending Orders: [cbc, bmp] Pending Results/Labs:[] Pending MD notification:[] Latest Vital Signs: Temperature 98.1 , Pulse 60 , B/P 122 /64 , Respiratory Rate 18 , O2 SAT 96 , Room Air, O2 Flow Rate 2.0 . Vital Sign Comment: [] Latest Roy Fall Score: 45 Fall Risk: High Risk Safety Measures: Call light Within Reach, Bed Alarm Zone 1, Side Rails Side Rails x2, Bed position Low and Locked. Fall Precautions: Yellow Socks Door Sign Patient Fall Education Report given to [RUDOLPH Arora].
[2020-08-29 20:00] VITALS: BP 106/54
[2020-08-29] MEDS: Atorvastatin 20mg tab ORAL SCH (21:20)
[2020-08-29] MEDS: cefTRIAXone 1 GM in D5W 55 ML IVPB SCH (22:34)
[2020-08-30] VITALS: BP 127/64
[2020-08-30 04:00] VITALS: BP 139/65
[2020-08-30] MEDS: HYDROcodone/Acetamin 10/325 tab ORAL PRN ×3 (06:05→18:21)
[2020-08-30] MEDS: NovoLOG Insulin Flexpen SUBQ SCH ×3 (06:06→17:13)
--- NOTE | 2020-08-30 07:20 | NUR ---
NURSE HAND-OFF: Important Events on Shift: Pain management Patient Status: Stable Diet: CCHO (medium) Pending Orders: [] Pending Results/Labs:[] Pending MD notification:[] Latest Vital Signs: Temperature 97.9 , Pulse 73 , B/P 139 /65 , Respiratory Rate 20 , O2 SAT 96 , Room Air, O2 Flow Rate 2.0 . Vital Sign Comment: VS stable Latest Roy Fall Score: 45 Fall Risk: High Risk Safety Measures: Call light Within Reach, Bed Alarm Zone 1, Side Rails Side Rails x2, Bed position Low and Locked. Fall Precautions: Yellow Socks Door Sign Patient Fall Education Report given to Darren GALDAMEZ.
--- NOTE | 2020-08-30 07:30 | NUR ---
NURSE NOTES: RN received report from Ulysses and patient in bed, [id number] showing no s/s of respiratory distress on RA. Patient is complaining of pain and RN will provide with pain medication shortly. IV access intact, patent, dry, clean and asymptomatic. Bed in semi maya position, in lowest position and locked. Bed alarm on. Call light within reach. Able to make needs known. Will continue to monitor.
[2020-08-30 08:00] VITALS: BP 118/62
[2020-08-30] MEDS: Lactulose 20gm/30ml UDC ORAL SCH ×4 (09:00→17:11)
[2020-08-30] MEDS: Lisinopril 20mg tab ORAL SCH (09:00)
[2020-08-30] MEDS: Metoprolol Tartrate 50mg tab ORAL SCH (09:00)
[2020-08-30] MEDS: Morphine Sulfate 2mg/ml Inj(IV/IM USE ONLY) IVP PRN (09:41)
[2020-08-30] MEDS: Ascorbic Acid 500mg tab ORAL SCH (09:42)
[2020-08-30] MEDS: Eliquis 2.5mg tablet ORAL SCH ×2 (09:43→17:10)
[2020-08-30] MEDS: metFORMIN 500mg tab ORAL SCH (09:43)
[2020-08-30] MEDS: Multivitamin w/Minerals tab ORAL SCH (09:43)
[2020-08-30] MEDS: Furosemide 40mg tab ORAL SCH (09:43)
[2020-08-30] MEDS: Meloxicam 15 MG TAB ORAL SCH (09:43)
[2020-08-30] MEDS: Levemir Flexpen SUBQ SCH ×2 (09:59→17:15)
--- NOTE | 2020-08-30 10:26 | NUR ---
CASE MANAGEMENT:REVIEW 08/30/20 SI: LLE CELLULITIS. ANEMIA WOUND CX(+) E COLI 98.6 64 20 118/62 96% ON RA NO LABS TODAY IS: IV ROCEPHIN Q24 LISINOPRIL PO QD IV MORPHINE Q4HRS PRN SS INSULIN AC+HS LEVEMIR SQ BID PROCARDIA XL PO QD ELIQUIS PO BID LOPRESSOR PO BID LACTULOSE PO TID LASIX PO QD : MED/SURG STATUS DCP: FROM [facility]
--- NOTE | 2020-08-30 11:23 | General Progress Note ---
Subjective Allergies: Coded Allergies: No Known Allergies (Unverified , 08/26/20) Subjective bed bound doing ok Objective Last 24 Hour Vital Signs Date Time Temp Pulse Resp B/P (MAP) Pulse Ox O2 Delivery O2 Flow Rate FiO2 08/30/20 09:00 118/62 08/30/20 09:00 64 118/62 08/30/20 09:00 64 118/62 08/30/20 08:00 98.6 64 20 118/62 (80) 96 08/30/20 04:00 97.9 73 20 139/65 (89) 96 08/30/20 00:00 99.1 65 18 127/64 (85) 96 08/29/20 21:00 Room Air 08/29/20 21:00 71 106/54 08/29/20 20:00 98.7 71 18 106/54 (71) 99 08/29/20 17:01 98.1 08/29/20 16:00 98.1 60 18 122/64 (83) 96 08/29/20 12:26 98.1 08/29/20 12:00 97.7 59 18 121/58 (79) 92 Intake and Output 08/29/20 08/30/20 19:00 07:00 Intake Total 720 ml Output Total 1500 ml 1400 ml Balance -780 ml -1400 ml Intake Oral 720 ml Output Urine Total 1500 ml Other 1400 ml # Voids 1 # Bowel Movements 1 Laboratory Tests 08/29/20 11:53: POC Whole Blood Glucose [Pending] 08/29/20 15:50: White Blood Count 7.3, Red Blood Count 3.49L, Hemoglobin 9.5L, Hematocrit 31.5L, Mean Corpuscular Volume 90, Mean Corpuscular Hemoglobin 27.2, Mean Corpuscular Hemoglobin Concent 30.1L, Red Cell Distribution Width 16.8H, Platelet Count 196, Mean Platelet Volume 6.2L, Neutrophils (%) (Auto) 70.1, Lymphocytes (%) (Auto) 16.4L, Monocytes (%) (Auto) 8.0, Eosinophils (%) (Auto) 4.4H, Basophils (%) (Auto) 1.1, Sodium Level 140, Potassium Level 5.0, Chloride Level 106, Carbon Dioxide Level 27, Anion Gap 7, Blood Urea Nitrogen 48H, Creatinine 1.3, Estimat Glomerular Filtration Rate 41.3, Glucose Level 215H, Calcium Level 9.2, Total Bilirubin 0.3, Aspartate Amino Transf (AST/SGOT) 20, Alanine Aminotransferase (ALT/SGPT) 20, Alkaline Phosphatase 89, Total Protein 7.6, Albumin 2.7L, Globulin 4.9, Albumin/Globulin Ratio 0.6L 08/29/20 16:21: POC Whole Blood Glucose [Pending] 08/29/20 20:45: POC Whole Blood Glucose 165H Height (Feet): 5 Height (Inches): 5.00 Weight (Pounds): 300 General Appearance: alert EENT: PERRL/EOMI Neck: supple Cardiovascular: normal rate Respiratory/Chest: lungs clear Abdomen: non tender, soft Extremities: swelling Skin: warm/dry Assessment/Plan Assessment/Plan: cellulitis of leg chf htn ch pain synd comorbid obeasity cont iv abx lasix cardiac diet fluid restriction cont pain Jaren Cobb MD Aug 30, 2020 11:23
[2020-08-30 12:00] VITALS: BP 129/70
--- NOTE | 2020-08-30 12:09 | Surgery Progress Note ---
Surgery Progress Note Subjective Symptoms: improved, pain same, tolerating diet, passing flatus Objective Last 24 Hour Vital Signs Date Time Temp Pulse Resp B/P (MAP) Pulse Ox O2 Delivery O2 Flow Rate FiO2 08/30/20 09:00 118/62 08/30/20 09:00 64 118/62 08/30/20 09:00 64 118/62 08/30/20 08:00 98.6 64 20 118/62 (80) 96 08/30/20 04:00 97.9 73 20 139/65 (89) 96 08/30/20 00:00 99.1 65 18 127/64 (85) 96 08/29/20 21:00 Room Air 08/29/20 21:00 71 106/54 08/29/20 20:00 98.7 71 18 106/54 (71) 99 08/29/20 17:01 98.1 08/29/20 16:00 98.1 60 18 122/64 (83) 96 08/29/20 12:26 98.1 I&O Intake and Output 08/29/20 08/30/20 19:00 07:00 Intake Total 720 ml Output Total 1500 ml 1400 ml Balance -780 ml -1400 ml Intake Oral 720 ml Output Urine Total 1500 ml Other 1400 ml # Voids 1 # Bowel Movements 1 Dressing: saturated Cardiovascular: RSR Respiratory: clear, decreased breath sounds Abdomen: soft, flat, non-tender, present bowel sounds, non-distended Extremities: edema, tenderness, no cyanosis, other Laboratory Tests Test 08/29/20 15:50 08/29/20 16:21 08/29/20 20:45 White Blood Count 7.3 K/UL (4.8-10.8) Red Blood Count 3.49 M/UL (4.20-5.40) L Hemoglobin 9.5 G/DL (12.0-16.0) L Hematocrit 31.5 % (37.0-47.0) L Mean Corpuscular Volume 90 FL (80-99) Mean Corpuscular Hemoglobin 27.2 PG (27.0-31.0) Mean Corpuscular Hemoglobin Concent 30.1 G/DL (32.0-36.0) L Red Cell Distribution Width 16.8 % (11.6-14.8) H Platelet Count 196 K/UL (150-450) Mean Platelet Volume 6.2 FL (6.5-10.1) L Neutrophils (%) (Auto) 70.1 % (45.0-75.0) Lymphocytes (%) (Auto) 16.4 % (20.0-45.0) L Monocytes (%) (Auto) 8.0 % (1.0-10.0) Eosinophils (%) (Auto) 4.4 % (0.0-3.0) H Basophils (%) (Auto) 1.1 % (0.0-2.0) Sodium Level 140 MMOL/L (136-145) Potassium Level 5.0 MMOL/L (3.5-5.1) Chloride Level 106 MMOL/L (98-107) Carbon Dioxide Level 27 MMOL/L (21-32) Anion Gap 7 mmol/L (5-15) Blood Urea Nitrogen 48 mg/dL (7-18) H Creatinine 1.3 MG/DL (0.55-1.30) Estimat Glomerular Filtration Rate 41.3 mL/min (>60) Glucose Level 215 MG/DL (74-106) H Calcium Level 9.2 MG/DL (8.5-10.1) Total Bilirubin 0.3 MG/DL (0.2-1.0) Aspartate Amino Transf (AST/SGOT) 20 U/L (15-37) Alanine Aminotransferase (ALT/SGPT) 20 U/L (12-78) Alkaline Phosphatase 89 U/L (46-116) Total Protein 7.6 G/DL (6.4-8.2) Albumin 2.7 G/DL (3.4-5.0) L Globulin 4.9 g/dL Albumin/Globulin Ratio 0.6 (1.0-2.7) L POC Whole Blood Glucose Pending 165 MG/DL (74-106) H Plan Problems: (1) Anemia (2) Cellulitis of left leg without foot Assessment & Plan: Patient identified to have significant morbid obesity and bilateral lower extremity venous stasis disease with near elephantitis. She has developed cellulitis on the left leg and states she is had similar episodes in the past. No open wounds prior. Now has an area of eschar with mild oozing because of the cellulitis and edema on the left posterior aspect of the leg. Thera honey applied followed by ABD and wrap. Okay for Optifoam dressing. Keep bilateral lower extremities elevated while in bed. Nutritional optimization. Antibiotics. Will follow with recommendations. Thank you for let me participate in patient's care. No abscess identified no acute surgical intervention local wound care (3) Morbid obesity with BMI of 45.0-49.9, adult (4) Hyperglycemia due to type 2 diabetes mellitus Corona Santiago Aug 30, 2020 12:09
--- NOTE | 2020-08-30 14:47 | NUR ---
INSURANCE REVIEWS/CLINICALS [facility] (08/27-08/30) #[phone] FAX# [phone]
--- NOTE | 2020-08-30 15:53 | NUR ---
*-*DISCHARGE PLANNED*-* PATIENT HAS BEEN ACCEPTED AND WILL BE DISCHARGED TO: [facility] P: [phone] FOR NURSE TO NURSE REPORT ROOM# 125.[facility] SET FOR 7PM WITH [facility].
[2020-08-30 16:00] VITALS: BP 127/73
--- NOTE | 2020-08-30 16:50 | NUR ---
NURSE NOTES: RN made aware to Dr. Sanz about patient's positive wound culture for ESBL. No further orders at this time
--- NOTE | 2020-08-30 19:40 | NUR ---
NURSE NOTES: RUDOLPH wolfe report to Lynda at [facility]. Christi removed the IV catheter and ID band. Belongings checked and signed by the patient; belongings remain with the patient. Vitals stable. Patient's discharge packets given to ambulance personnels. Patient is transported on a gurney with help of two transporters.
--- NOTE | 2020-08-30 19:45 | NUR ---
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 patientdischarged via ambulance in stable condition no distress.
--- NOTE | 2020-08-30 19:49 | NUR ---
NURSE HAND-OFF: Important Events on Shift:discharge to snf Patient Status: stable Diet: CCHO medium Pending Orders: n/a Pending Results/Labs:n/a Pending MD notification:n/a Latest Vital Signs: Temperature 98.8 , Pulse 69 , B/P 127 /73 , Respiratory Rate 19 , O2 SAT 98 , Room Air, O2 Flow Rate 2.0 . Vital Sign Comment: stable Latest Roy Fall Score: 45 Fall Risk: High Risk Safety Measures: Call light Within Reach, Bed Alarm Zone 1, Side Rails Side Rails x2, Bed position Low and Locked. Fall Precautions: Yellow Socks Door Sign Patient Fall Education Report given to RUDOLPH Barraza.
--- NOTE | 2020-08-31 13:21 | NUR ---
INSURANCE DC INSTRUCTIONS FAXED [facility] #[phone] FAX# [phone]
--- NOTE | 2020-09-01 15:41 | Discharge Summary ---
Discharge Summary Discharge Summary _ Date of admission: 08/26/2020 Date of discharge: 08/30/[address] Sanz History of Present Illness and Brief Hospital Course This is a 65-year-old female with past medical history of diabetes mellitus and morbid obesity with a BMI of 49.9, who presented to the ED for evaluation of leg pain and drainage x2 days. She had redness and drainage from her left lower extremity. Pain was 9 out of 10 in severity. Patient denied fever, chills, nausea, vomiting, or any trauma. She did report that she had similar symptoms in the past. She reported that she got tested for COVID-19 multiple times in the past which were all negative. She had 2 doses of COVID-19 vaccine already. Patient was given antibiotics in the ER and was admitted to the hospital for further management. She was identified to have significant morbid obesity and bilateral lower extremity venous stasis disease with near elephantitis. She had developed makenzie lulitis on the left leg and stated she had similar episodes in the past. She had an area of eschar with mild oozing because of the cellulitis and edema on the left posterior aspect of the leg. She was started on Lasix. Patient's lower extremities were elevated while in bed and her nutrition was optimized. She was kept on antibiotics. She was medically stable for discharge to SNF and was discharged on 08/30/2020. Consultants: Surgery Dr. Santiago Discharge Condition Improved and stable Final diagnoses Anemia Cellulitis of left leg Morbid obesity with BMI of 49.9 Diabetes mellitus with hyperglycemia CHF Hypertension Chest pain syndrome I have been assigned to dictate discharge summary for this account. I was not involved in the patient's management Sachin Fountain Sep 01, 2020 15:41
== END 2020-08-30 19:45 | DRG 383 ==
LOC: EDBD 22:04 → EMR 22:30 → 4E 23:10 → EDBEDREQ 23:45
DX: L03.116 Cellulitis of left lower limb (principal); E66.01 Morbid (severe) obesity due to excess calories; Z68.42 Body mass index [BMI] 45.0-49.9, adult; E11.65 Type 2 diabetes mellitus with hyperglycemia; I11.0 Hypertensive heart disease with heart failure; I50.9 Heart failure, unspecified; R07.89 Other chest pain; G89.29 Other chronic pain; D64.9 Anemia, unspecified
CPT/HCPCS: 36415; 80053; 82962; 83036; 83605; 85025; 87040; 87070; 87181; 87205; 96361; 96365; 99285; J1815; J7030; S5561